=== PATIENT | female | born 1985 | race Asian ===

== ENCOUNTER 2016-10-21 20:22 | Emergency (ER) | payer OTHER ==
[~2016-10-21] VITALS: Ht 160 cm; Wt 77.3 kg
[~2016-10-21 20:22] MED LIST: ATOR10TA84 PO; FLUP10 PO; LOSA25TA21 PO; METF500T4 PO
[2016-10-21 21:01] LABS: GLUCOSE,POINT OF CARE 232 MG/DL (70-110)
[2016-10-21 22:27] LABS: BASOPHILS % (AUTO) 0.4 % (0.0-2.0); EOSINOPHILS % (AUTO) 1.5 % (1.0-6.0); HEMATOCRIT 43.1 % (36-46); HEMOGLOBIN 14.2 g/dL (12.0-16.0); LYMPHOCYTES # (AUTO) 3.5 K/uL (1.0-4.8); LYMPHOCYTES % (AUTO) 17.3 % (22.0-44.0); MEAN CORPUSCULAR HEMOGLOBIN 29.1 pg (26.0-34.0); MEAN CORPUSCULAR VOLUME 88 fL (80-100); MONOCYTES # (AUTO) 0.8 K/uL (0.1-1.0); MONOCYTES % (AUTO) 3.8 % (2.0-9.0); NEUTROPHILS # (AUTO) 15.8 K/uL (1.8-7.7); PLATELET COUNT (AUTO) 463 K/uL (150-450); RED BLOOD CELL COUNT(AUTO) 4.88 MIL/uL (4.00-5.20); RED CELL DISTRIBUTION WIDTH 13.2 % (11.5-14.5); WHITE BLOOD COUNT (AUTO) 20.5 K/uL (4.5-11.0)
[2016-10-21 22:40] LABS: ANION GAP 8 mmol/L (8-16); CARBON DIOXIDE 28 mmol/L (22-29); CHLORIDE 95 mmol/L (98-107); CREATININE 0.82 mg/dL (0.60-1.30); GLOMERULAR FILTR. RATE CALC > 60 mL/min (>60); POTASSIUM 4.1 mmol/L (3.5-5.1); SODIUM SERUM 131 mmol/L (136-145); UREA NITROGEN, BLOOD 12 mg/dL (7-18)
[2016-10-21 22:45] LABS: ALANINE AMINOTRANSFERASE 23 U/L (12-78); ALBUMIN 3.4 g/dL (3.4-5.0); ASPARTATE AMINOTRANSFERASE 16 U/L (15-37); BILIRUBIN,TOTAL 0.1 mg/dL (0.1-1.0); TOTAL PROTEIN, SERUM 8.2 g/dL (6.4-8.2)
[2016-10-21] MEDS ORDERED: FluPHENAZine HCL 10 MG TABLET PO ONE (23:45)
[2016-10-21] MEDS ORDERED: DiphenhydrAMINE HCL 25 MG CAPSULE PO ONE (23:45)
[2016-10-22 00:28] VITALS: BP 141/101
[2016-10-22] MEDS ORDERED: LISINOPRIL 10 MG TABLET PO ONE (00:45)
== END 2016-10-22 00:42 | disposition home or self-care (01) ==
LOC: EMS 20:29
DX: I10 Essential (primary) hypertension (principal); F15.10 Other stimulant abuse, uncomplicated; F20.9 Schizophrenia, unspecified; F31.9 Bipolar disorder, unspecified; E11.9 Type 2 diabetes mellitus without complications
CPT/HCPCS: 36415; 80053; 80307; 82962; 85025; 99284; G0480

== ENCOUNTER 2017-09-02 22:43 | Inpatient (IN) | payer MEDICAID, OTHER ==
[~2017-09-02] VITALS: Ht 157.5 cm; Wt 76.7 kg
[2017-09-02] MEDS ORDERED: RISP.5 PO (22:50)
[2017-09-02 23:34] LABS: BASOPHILS # (AUTO) 0.05 K/uL (0.00-0.20); BASOPHILS % (AUTO) 0.4 % (0.0-2.0); EOSINOPHILS # (AUTO) 0.26 K/uL (0.00-0.70); EOSINOPHILS % (AUTO) 1.88 % (1.0-6.0); HEMATOCRIT 41.4 % (36-46); HEMOGLOBIN 13.9 g/dL (12.0-16.0); LYMPHOCYTES # (AUTO) 2.9 K/uL (1.0-4.8); LYMPHOCYTES % (AUTO) 21.3 % (22.0-44.0); MEAN CORPUSCULAR HEMOGLOBIN 30.7 pg (26.0-34.0); MEAN CORPUSCULAR HGB CONC 33.5 G/dL (31.0-37.0); MEAN CORPUSCULAR VOLUME 92 fL (80-100); MONOCYTES # (AUTO) 0.8 K/uL (0.1-1.0); MONOCYTES % (AUTO) 5.8 % (2.0-9.0); NEUTROPHILS # (AUTO) 9.7 K/uL (1.8-7.7); NEUTROPHILS % (AUTO) 70.6 % (40.0-70.0); PLATELET COUNT (AUTO) 432 K/uL (150-450); RED BLOOD CELL COUNT(AUTO) 4.52 MIL/uL (4.00-5.20); RED CELL DISTRIBUTION WIDTH 13.3 % (11.5-14.5); WHITE BLOOD COUNT (AUTO) 13.8 K/uL (4.5-11.0)
[2017-09-02 23:48] LABS: ANION GAP 14 mmol/L (8-16); CALCIUM, TOTAL 8.7 mg/dL (8.8-10.5); CARBON DIOXIDE 21 mmol/L (22-29); CHLORIDE 101 mmol/L (98-107); CREATININE 0.75 mg/dL (0.60-1.30); GLOMERULAR FILTR. RATE CALC > 60 mL/min (>60); POTASSIUM 3.2 mmol/L (3.5-5.1); SODIUM SERUM 136 mmol/L (136-145); UREA NITROGEN, BLOOD 8 mg/dL (7-18)
[2017-09-02 23:52] LABS: ALANINE AMINOTRANSFERASE 49 U/L (12-78); ALBUMIN 3.4 g/dL (3.4-5.0); ASPARTATE AMINOTRANSFERASE 71 U/L (15-37); BILIRUBIN,TOTAL 0.2 mg/dL (0.1-1.0)
[2017-09-03 00:08] LABS: GLUCOSE,POINT OF CARE 170 MG/DL (70-110)
[2017-09-03] MEDS ORDERED: LORazepam 2 MG TABLET PO PRN (00:30)
[2017-09-03] MEDS ORDERED: ZOLPIDEM TARTRATE 10 MG TABLET PO PRN (00:30)
[2017-09-03] MEDS ORDERED: HALOPERIDOL 5 MG TABLET PO PRN (00:30)
[2017-09-03 03:08] VITALS: BP 142/90
[2017-09-03 05:33] LABS: GLUCOSE,POINT OF CARE 140 MG/DL (70-110)
[2017-09-03] MEDS ORDERED: POTASSIUM CHLORIDE 20 MEQ ER TABLET PO ONE (06:15)
[2017-09-03 08:15] VITALS: BP 127/72
[2017-09-03] MEDS ORDERED: ACETAMINOPHEN 325 MG TABLET PO PRN (11:45)
[2017-09-03] MEDS ORDERED: IBUPROFEN 400 MG TABLET PO PRN (11:45)
[2017-09-03 18:42] VITALS: BP 140/83
[2017-09-04 07:34] LABS: BASOPHILS % (AUTO) 0.9 % (0.0-2.0); EOSINOPHILS % (AUTO) 2.7 % (1.0-6.0); HEMATOCRIT 43.9 % (36-46); HEMOGLOBIN 14.8 g/dL (12.0-16.0); LYMPHOCYTES # (AUTO) 4.4 K/uL (1.0-4.8); LYMPHOCYTES % (AUTO) 26.3 % (22.0-44.0); MEAN CORPUSCULAR HEMOGLOBIN 30.9 pg (26.0-34.0); MEAN CORPUSCULAR HGB CONC 33.8 G/dL (31.0-37.0); MEAN CORPUSCULAR VOLUME 91 fL (80-100); MONOCYTES % (AUTO) 5.7 % (2.0-9.0); NEUTROPHILS # (AUTO) 10.9 K/uL (1.8-7.7); NEUTROPHILS % (AUTO) 64.4 % (40.0-70.0); PLATELET COUNT (AUTO) 327 K/uL (150-450); RED CELL DISTRIBUTION WIDTH 13.5 % (11.5-14.5); WHITE BLOOD COUNT (AUTO) 16.9 K/uL (4.5-11.0)
[2017-09-04 08:02] LABS: CHOL/HDL RATIO 4.9 (3.9-5.7); POTASSIUM 3.7 mmol/L (3.5-5.1); THYROID STIMULATING HORMONE 1.06 uIU/mL (0.36-3.74)
[2017-09-04 08:48] LABS: HEMOGLOBIN A1C 6.7 % (4.5-6.2)
[2017-09-04] MEDS: RisperiDONE 1 MG TABLET PO SCH ×2 (10:08→16:54)
[2017-09-04 10:33] VITALS: BP 156/75
[2017-09-04 17:41] VITALS: BP 128/82
[2017-09-04 18:53] LABS: APPEARANCE,URINE CLOUDY (CLEAR); GLUCOSE, URINE (UA) NEGATIVE (NEGATIVE); KETONES,URINE NEGATIVE (NEGATIVE); LEUKOCYTE ESTERASE ,URINE TRACE (NEGATIVE); OCCULT BLOOD,URINE TRACE (NEGATIVE); PROTEIN,URINE SEE CONFIRM (NEGATIVE)
[2017-09-04 19:03] LABS: ADD UA MICROSCOPIC YES
[2017-09-04 19:05] LABS: SULFOSALICYLIC ACID,URINE 3+ (Negative)
[2017-09-04 19:06] LABS: RBC,URINE None Seen /HPF (0-2); SQUAMOUS EPITHELIAL CELL,UR Many /LPF (None Seen); WBC,URINE 0-2 /HPF (0-5)
[2017-09-05 07:07] LABS: GLUCOSE COMMENT 1 FASTING; GLUCOSE,POINT OF CARE 125 MG/DL (70-110)
[2017-09-05 09:31] VITALS: BP 122/72
[2017-09-05] MEDS: RisperiDONE 1 MG TABLET PO SCH ×2 (10:17→16:26)
[2017-09-05 12:17] LABS: GLUCOSE,POINT OF CARE 134 MG/DL (70-110)
[2017-09-05 16:54] VITALS: BP 122/79
[2017-09-05 21:32] LABS: GLUCOSE,POINT OF CARE 112 MG/DL (70-110)
[2017-09-06 02:40] VITALS: BP 135/68
[2017-09-06 07:13] LABS: GLUCOSE COMMENT 1 Received Meds; GLUCOSE,POINT OF CARE 180 MG/DL (70-110)
[2017-09-06] MEDS: RisperiDONE 1 MG TABLET PO SCH (09:17)
[2017-09-06 09:20] VITALS: BP 113/61
[2017-09-06 11:02] LABS: GLUCOSE,POINT OF CARE 174 MG/DL (70-110)
[2017-09-06] MEDS ORDERED: RISP1 PO (13:15)
== END 2017-09-06 16:00 | disposition home or self-care (01) | DRG 750 ==
LOC: EMS 22:45 → 3EI 09-03 02:48
PROVIDERS: ADMIT Psychiatry & Neurology Psychiatry; ATTEND Psychiatry & Neurology Psychiatry
DX: F25.0 Schizoaffective disorder, bipolar type (principal); E11.9 Type 2 diabetes mellitus without complications; I10 Essential (primary) hypertension; F15.20 Other stimulant dependence, uncomplicated; E03.9 Hypothyroidism, unspecified; D72.829 Elevated white blood cell count, unspecified; E78.5 Hyperlipidemia, unspecified; E87.6 Hypokalemia; J45.909 Unspecified asthma, uncomplicated; F29 Unspecified psychosis not due to a substance or known physiological condition; F17.210 Nicotine dependence, cigarettes, uncomplicated; Z91.5 Personal history of self-harm
CPT/HCPCS: 71020; 82962; 83036; 84132; 84443; 99285; G0480

== ENCOUNTER 2019-01-17 09:49 | Inpatient (IN) | payer MEDICAID, OTHER ==
[~2019-01-17] VITALS: Ht 157.5 cm; Wt 72.7 kg
[~2019-01-17 09:49] MED LIST changes: -ATOR10TA84 PO; -FLUP10 PO; -LOSA25TA21 PO; -METF500T4 PO; +RISP1 PO
[2019-01-17 10:12] LABS: GLUCOSE,POINT OF CARE 175 MG/DL (70-110)
[2019-01-17] MEDS ORDERED: HALOPERIDOL LACTATE 5 MG/ML VIAL IM ONE (10:45)
[2019-01-17 11:12] LABS: BASOPHILS % (AUTO) 0.8 % (0.0-2.0); EOSINOPHILS % (AUTO) 1.8 % (1.0-6.0); HEMATOCRIT 42.8 % (36-46); HEMOGLOBIN 14.4 g/dL (12.0-16.0); LYMPHOCYTES # (AUTO) 2.5 K/uL (1.0-4.8); MEAN CORPUSCULAR HEMOGLOBIN 30.1 pg (26.0-34.0); MEAN CORPUSCULAR HGB CONC 33.5 G/dL (31.0-37.0); MEAN CORPUSCULAR VOLUME 90 fL (80-100); MONOCYTES # (AUTO) 0.5 K/uL (0.1-1.0); MONOCYTES % (AUTO) 5.6 % (2.0-9.0); NEUTROPHILS # (AUTO) 6.1 K/uL (1.8-7.7); NEUTROPHILS % (AUTO) 64.8 % (40.0-70.0); PLATELET COUNT (AUTO) 453 K/uL (150-450); RED BLOOD CELL COUNT(AUTO) 4.76 MIL/uL (4.00-5.20); RED CELL DISTRIBUTION WIDTH 12.9 % (11.5-14.5)
[2019-01-17 11:28] LABS: ANION GAP 11 mmol/L (8-16); CALCIUM, TOTAL 8.8 mg/dL (8.8-10.5); CARBON DIOXIDE 24 mmol/L (22-29); CHLORIDE 102 mmol/L (98-107); GLOMERULAR FILTR. RATE CALC > 60 mL/min (>60); GLUCOSE,RANDOM 163 mg/dL (70-110); POTASSIUM 3.6 mmol/L (3.5-5.1); SODIUM SERUM 137 mmol/L (136-145); UREA NITROGEN, BLOOD 12 mg/dL (7-18)
[2019-01-17] MEDS ORDERED: DiphenhydrAMINE HCL 50 MG/ML VIAL IM ONE (11:30)
[2019-01-17] MEDS ORDERED: LORazepam 2 MG/ML VIAL IM ONE (11:30)
[2019-01-17 11:45] LABS: BARBITURATE SCREEN, URINE NEGATIVE (NEGATIVE); BENZODIAZEPINES SCREEN,URINE NEGATIVE (NEGATIVE); CANNABINOID SCREEN,URINE NEGATIVE (NEGATIVE); COCAINE SCREEN,URINE NEGATIVE (NEGATIVE); METHADONE SCREEN, URINE NEGATIVE (NEGATIVE); OPIATE SCREEN,URINE NEGATIVE (NEGATIVE); PHENCYCLIDINE SCREEN,URINE NEGATIVE (NEGATIVE)
[2019-01-17 11:48] LABS: ALANINE AMINOTRANSFERASE 21 U/L (12-78); ALBUMIN 3.5 g/dL (3.4-5.0); ALKALINE PHOSPHATASE 49 U/L (46-116); ASPARTATE AMINOTRANSFERASE 19 U/L (15-37); BILIRUBIN,TOTAL 0.3 mg/dL (0.1-1.0); HCG,QUANTITATIVE < 1 mIU/mL (0-6); TOTAL PROTEIN, SERUM 7.8 g/dL (6.4-8.2)
[2019-01-17 11:54] LABS: AMPHET/METH SCREEN,URINE POSITIVE (NEGATIVE)
[2019-01-17] MEDS ORDERED: ZOLPIDEM TARTRATE 10 MG TABLET PO PRN (13:15)
[2019-01-17 13:39] LABS: CHOL/HDL RATIO 4.5 (3.9-5.7); CHOLESTEROL 244 mg/dL (131-200); HDL CHOLESTEROL 54 mg/dL (40-60); LDL CHOL (CALC.) 161 mg/dL (0-130); TRIGLYCERIDES 143 mg/dL (15-150)
[2019-01-17 16:29] VITALS: BP 138/87
[2019-01-17] MEDS ORDERED: BENZOCAINE/MENTHOL LOZENGE MM PRN (23:00)
[2019-01-17] MEDS ORDERED: ALBUTEROL SULFATE HFA 90 MCG/PUFF 8 GM INHALER IH PRN (23:00)
[2019-01-17] MEDS ORDERED: CloNIDine HCL 0.1 MG TABLET PO PRN (23:00)
[2019-01-17] MEDS ORDERED: LOPERAMIDE HCL 2 MG CAPSULE PO PRN (23:00)
[2019-01-17] MEDS ORDERED: ONDANSETRON HCL 4 MG TABLET PO PRN (23:00)
[2019-01-17] MEDS ORDERED: MAGNESIUM HYDROXIDE SUSPENSION 30 ML UDCUP PO PRN (23:00)
[2019-01-17] MEDS ORDERED: MAG HYDROX/AL HYDROX/SIMETH ES 30 ML SUSPENSION UDCUP PO PRN (23:00)
[2019-01-17] MEDS ORDERED: PETROLATUM,WHITE 28 GM JELLY TP PRN (23:00)
[2019-01-17] MEDS ORDERED: BACITRACIN 28.4 GM OINTMENT TP PRN (23:00)
[2019-01-18 06:23] VITALS: BP 139/89
[2019-01-18 08:21] VITALS: BP 133/81
[2019-01-18] MEDS: OMEPRAZOLE 20 MG CAPSULE PO SCH (08:49)
[2019-01-18] MEDS: DOCUSATE SODIUM 100 MG CAPSULE PO SCH (08:49)
[2019-01-18] MEDS ORDERED: GLUCAGON,HUMAN RECOMBINANT 1 MG VIAL IM PRN (17:00)
[2019-01-18 17:35] LABS: GLUCOMETER DEV NAME(LOC) BV3S.; GLUCOSE,POINT OF CARE 137 MG/DL (70-110)
[2019-01-19 06:13] VITALS: BP 152/96
[2019-01-19 06:30] LABS: GLUCOMETER DEV NAME(LOC) BV3S.; GLUCOSE,POINT OF CARE 135 MG/DL (70-110)
[2019-01-19 08:15] VITALS: BP 141/68
[2019-01-19] MEDS: DOCUSATE SODIUM 100 MG CAPSULE PO SCH (08:57)
[2019-01-19] MEDS: DIVALPROEX SODIUM 500 MG DR TABLET PO SCH ×2 (08:57→16:28)
[2019-01-19] MEDS: OMEPRAZOLE 20 MG CAPSULE PO SCH (08:57)
[2019-01-19] MEDS: RisperiDONE 3 MG TABLET PO SCH ×2 (08:57→16:28)
[2019-01-19] MEDS: INSULIN LISPRO 100 UNITS/ML SQ PRN (11:48)
[2019-01-19 12:04] LABS: GLUCOMETER DEV NAME(LOC) BV3S.; GLUCOSE,POINT OF CARE 142 MG/DL (70-110)
[2019-01-19 16:15] VITALS: BP 130/74
[2019-01-19 17:10] LABS: GLUCOMETER DEV NAME(LOC) BV3S.; GLUCOSE,POINT OF CARE 125 MG/DL (70-110)
[2019-01-19] MEDS: ACETAMINOPHEN 325 MG TABLET PO PRN (18:46)
[2019-01-19 21:10] LABS: GLUCOMETER DEV NAME(LOC) BV3S.; GLUCOSE,POINT OF CARE 131 MG/DL (70-110)
[2019-01-19] MEDS: IBUPROFEN 600 MG TABLET PO PRN (21:54)
[2019-01-20 06:24] VITALS: BP 142/80
[2019-01-20 06:39] LABS: GLUCOMETER DEV NAME(LOC) BV3N.; GLUCOSE,POINT OF CARE 115 MG/DL (70-110)
[2019-01-20 08:22] VITALS: BP 147/91
[2019-01-20] MEDS: OMEPRAZOLE 20 MG CAPSULE PO SCH (08:54)
[2019-01-20] MEDS: DIVALPROEX SODIUM 500 MG DR TABLET PO SCH ×2 (08:54→16:33)
[2019-01-20] MEDS: DOCUSATE SODIUM 100 MG CAPSULE PO SCH (08:54)
[2019-01-20] MEDS: RisperiDONE 3 MG TABLET PO SCH ×2 (08:54→16:33)
[2019-01-20 12:00] LABS: GLUCOMETER DEV NAME(LOC) BV3S.; GLUCOSE,POINT OF CARE 182 MG/DL (70-110)
[2019-01-20] MEDS: INSULIN LISPRO 100 UNITS/ML SQ PRN ×2 (12:05→16:58)
[2019-01-20 16:44] LABS: GLUCOMETER DEV NAME(LOC) BV3S.; GLUCOSE,POINT OF CARE 158 MG/DL (70-110)
[2019-01-20 17:30] VITALS: BP 150/97
[2019-01-20] MEDS: LORazepam 2 MG TABLET PO PRN (17:54)
[2019-01-21 06:26] VITALS: BP 145/85
[2019-01-21 06:59] LABS: GLUCOMETER DEV NAME(LOC) BV3S.; GLUCOSE,POINT OF CARE 113 MG/DL (70-110)
[2019-01-21 07:38] VITALS: BP 137/99
[2019-01-21] MEDS: ACETAMINOPHEN 325 MG TABLET PO PRN (07:38)
[2019-01-21] MEDS: DIVALPROEX SODIUM 500 MG DR TABLET PO SCH ×2 (08:25→16:28)
[2019-01-21] MEDS: OMEPRAZOLE 20 MG CAPSULE PO SCH (08:25)
[2019-01-21] MEDS: DOCUSATE SODIUM 100 MG CAPSULE PO SCH (08:25)
[2019-01-21] MEDS: RisperiDONE 3 MG TABLET PO SCH ×2 (08:25→16:28)
[2019-01-21] MEDS: NICOTINE 21 MG/24 HOUR PATCH TD SCH (10:02)
[2019-01-21 10:04] VITALS: BP 140/98
[2019-01-21 11:34] LABS: GLUCOMETER DEV NAME(LOC) BV3S.; GLUCOSE,POINT OF CARE 126 MG/DL (70-110)
[2019-01-21] MEDS: IBUPROFEN 600 MG TABLET PO PRN (13:47)
[2019-01-21 13:49] VITALS: BP 141/94
[2019-01-21 16:10] VITALS: BP 137/82
[2019-01-21 17:49] LABS: GLUCOMETER DEV NAME(LOC) BV3S.; GLUCOSE,POINT OF CARE 134 MG/DL (70-110)
[2019-01-21 20:25] LABS: GLUCOMETER DEV NAME(LOC) BV3S.; GLUCOSE,POINT OF CARE 162 MG/DL (70-110)
[2019-01-21] MEDS: INSULIN LISPRO 100 UNITS/ML SQ PRN (20:35)
[2019-01-22 06:30] VITALS: BP 161/114
[2019-01-22 06:59] LABS: GLUCOMETER DEV NAME(LOC) BV3S.; GLUCOSE,POINT OF CARE 131 MG/DL (70-110)
[2019-01-22 07:18] VITALS: BP 149/86
[2019-01-22 08:25] VITALS: BP 124/81
[2019-01-22] MEDS: DOCUSATE SODIUM 100 MG CAPSULE PO SCH (08:32)
[2019-01-22] MEDS: RisperiDONE 3 MG TABLET PO SCH ×2 (08:32→16:18)
[2019-01-22] MEDS: OMEPRAZOLE 20 MG CAPSULE PO SCH (08:32)
[2019-01-22] MEDS: DIVALPROEX SODIUM 500 MG DR TABLET PO SCH ×2 (08:32→16:18)
[2019-01-22] MEDS: NICOTINE 21 MG/24 HOUR PATCH TD SCH (08:32)
[2019-01-22] MEDS: LISINOPRIL 10 MG TABLET PO SCH (08:49)
[2019-01-22 11:55] LABS: GLUCOMETER DEV NAME(LOC) BV3S.; GLUCOSE,POINT OF CARE 123 MG/DL (70-110)
[2019-01-22 16:11] VITALS: BP 133/99
[2019-01-22] MEDS: MetFORMIN HCL 500 MG TABLET PO SCH (16:18)
[2019-01-22 16:55] LABS: GLUCOMETER DEV NAME(LOC) BV3S.; GLUCOSE,POINT OF CARE 202 MG/DL (70-110)
[2019-01-22] MEDS ORDERED: MetFORMIN HCL 500 MG TABLET PO SCH (17:00)
[2019-01-22] MEDS: INSULIN LISPRO 100 UNITS/ML SQ PRN (17:02)
[2019-01-22] MEDS: LORazepam 2 MG TABLET PO PRN (17:50)
[2019-01-22] MEDS: HALOPERIDOL 5 MG TABLET PO PRN (17:50)
[2019-01-22 20:55] LABS: GLUCOMETER DEV NAME(LOC) BV3S.; GLUCOSE,POINT OF CARE 107 MG/DL (70-110)
[2019-01-23 06:30] LABS: GLUCOMETER DEV NAME(LOC) BV3S.; GLUCOSE,POINT OF CARE 105 MG/DL (70-110)
[2019-01-23 06:37] VITALS: BP 142/87
[2019-01-23] MEDS: MetFORMIN HCL 500 MG TABLET PO SCH ×2 (06:39→16:58)
[2019-01-23] MEDS: OMEPRAZOLE 20 MG CAPSULE PO SCH (08:16)
[2019-01-23] MEDS: DOCUSATE SODIUM 100 MG CAPSULE PO SCH (08:16)
[2019-01-23] MEDS: RisperiDONE 3 MG TABLET PO SCH ×2 (08:17→16:58)
[2019-01-23] MEDS: LISINOPRIL 10 MG TABLET PO SCH (08:17)
[2019-01-23] MEDS: DIVALPROEX SODIUM 500 MG DR TABLET PO SCH ×2 (08:17→16:58)
[2019-01-23] MEDS: NICOTINE 21 MG/24 HOUR PATCH TD SCH (08:19)
[2019-01-23 09:09] VITALS: BP 122/95
[2019-01-23 12:00] LABS: GLUCOMETER DEV NAME(LOC) BV3S.; GLUCOSE,POINT OF CARE 105 MG/DL (70-110)
[2019-01-23 16:13] VITALS: BP 136/100
[2019-01-23 16:26] LABS: GLUCOMETER DEV NAME(LOC) BV3S.; GLUCOSE,POINT OF CARE 100 MG/DL (70-110)
[2019-01-23] MEDS: LORazepam 2 MG TABLET PO PRN (16:58)
[2019-01-23] MEDS: HALOPERIDOL 5 MG TABLET PO PRN (16:58)
[2019-01-23 17:56] VITALS: BP 134/96
[2019-01-23 20:54] LABS: GLUCOMETER DEV NAME(LOC) BV3S.; GLUCOSE,POINT OF CARE 117 MG/DL (70-110)
[2019-01-24 00:53] VITALS: BP 142/89
[2019-01-24 05:51] LABS: GLUCOMETER DEV NAME(LOC) BV3S.; GLUCOSE,POINT OF CARE 100 MG/DL (70-110)
[2019-01-24] MEDS: MetFORMIN HCL 500 MG TABLET PO SCH ×2 (06:02→17:26)
[2019-01-24 08:30] VITALS: BP 126/69
[2019-01-24] MEDS: LISINOPRIL 10 MG TABLET PO SCH (08:56)
[2019-01-24] MEDS: DOCUSATE SODIUM 100 MG CAPSULE PO SCH (08:56)
[2019-01-24] MEDS: OMEPRAZOLE 20 MG CAPSULE PO SCH (08:56)
[2019-01-24] MEDS: DIVALPROEX SODIUM 500 MG DR TABLET PO SCH ×2 (08:56→17:26)
[2019-01-24] MEDS: RisperiDONE 3 MG TABLET PO SCH ×2 (08:56→17:26)
[2019-01-24] MEDS: NICOTINE 21 MG/24 HOUR PATCH TD SCH (08:57)
[2019-01-24 12:00] LABS: GLUCOMETER DEV NAME(LOC) BV3S.; GLUCOSE,POINT OF CARE 106 MG/DL (70-110)
[2019-01-24 16:00] VITALS: BP 127/75
[2019-01-24 16:55] LABS: GLUCOMETER DEV NAME(LOC) BV3S.; GLUCOSE,POINT OF CARE 130 MG/DL (70-110)
[2019-01-24] MEDS: LORazepam 2 MG TABLET PO PRN (17:26)
[2019-01-24 20:54] LABS: GLUCOMETER DEV NAME(LOC) BV3S.; GLUCOSE,POINT OF CARE 87 MG/DL (70-110)
[2019-01-25 01:06] VITALS: BP 121/75
[2019-01-25 06:29] LABS: GLUCOMETER DEV NAME(LOC) BV3S.; GLUCOSE,POINT OF CARE 95 MG/DL (70-110)
[2019-01-25] MEDS: MetFORMIN HCL 500 MG TABLET PO SCH ×2 (06:41→17:03)
[2019-01-25 08:37] VITALS: BP 106/70
[2019-01-25 09:02] VITALS: BP 118/75
[2019-01-25] MEDS: OMEPRAZOLE 20 MG CAPSULE PO SCH (09:04)
[2019-01-25] MEDS: DIVALPROEX SODIUM 500 MG DR TABLET PO SCH ×2 (09:04→17:03)
[2019-01-25] MEDS: ASPIRIN 81 MG EC TABLET PO SCH (09:05)
[2019-01-25] MEDS: LISINOPRIL 10 MG TABLET PO SCH (09:05)
[2019-01-25] MEDS: RisperiDONE 3 MG TABLET PO SCH ×2 (09:05→17:03)
[2019-01-25] MEDS: DOCUSATE SODIUM 100 MG CAPSULE PO SCH (09:05)
[2019-01-25] MEDS: NICOTINE 21 MG/24 HOUR PATCH TD SCH (09:09)
[2019-01-25] MEDS: INSULIN LISPRO 100 UNITS/ML SQ PRN ×2 (11:57→20:23)
[2019-01-25 12:00] LABS: GLUCOMETER DEV NAME(LOC) BV3S.; GLUCOSE,POINT OF CARE 151 MG/DL (70-110)
[2019-01-25 16:18] VITALS: BP 134/96
[2019-01-25] MEDS: LORazepam 2 MG TABLET PO PRN (16:29)
[2019-01-25 16:54] LABS: GLUCOMETER DEV NAME(LOC) BV3S.; GLUCOSE,POINT OF CARE 118 MG/DL (70-110)
[2019-01-25 20:19] LABS: GLUCOMETER DEV NAME(LOC) BV3S.; GLUCOSE,POINT OF CARE 163 MG/DL (70-110)
[2019-01-26 01:23] VITALS: BP 122/61
[2019-01-26 06:20] LABS: GLUCOMETER DEV NAME(LOC) BV3S.; GLUCOSE,POINT OF CARE 101 MG/DL (70-110)
[2019-01-26] MEDS: MetFORMIN HCL 500 MG TABLET PO SCH ×2 (06:23→16:03)
[2019-01-26 08:25] VITALS: BP 126/76
[2019-01-26] MEDS: DIVALPROEX SODIUM 500 MG DR TABLET PO SCH ×2 (08:30→16:03)
[2019-01-26] MEDS: LISINOPRIL 10 MG TABLET PO SCH (08:30)
[2019-01-26] MEDS: LORazepam 2 MG TABLET PO PRN (08:30)
[2019-01-26] MEDS: NICOTINE 21 MG/24 HOUR PATCH TD SCH (08:30)
[2019-01-26] MEDS: DOCUSATE SODIUM 100 MG CAPSULE PO SCH (08:31)
[2019-01-26] MEDS: OMEPRAZOLE 20 MG CAPSULE PO SCH (08:31)
[2019-01-26] MEDS: RisperiDONE 3 MG TABLET PO SCH ×2 (08:31→16:03)
[2019-01-26] MEDS: ASPIRIN 81 MG EC TABLET PO SCH (08:33)
[2019-01-26] MEDS ORDERED: LISI-661 PO (11:43)
[2019-01-26] MEDS ORDERED: DIVA250T4 PO (11:43)
[2019-01-26] MEDS ORDERED: METF500T PO (11:43)
[2019-01-26] MEDS ORDERED: ASPI81TA39 PO (11:43)
[2019-01-26] MEDS ORDERED: DOCU100C33 PO (11:43)
[2019-01-26] MEDS ORDERED: RISP3TAB44 PO (11:43)
[2019-01-26] MEDS ORDERED: OMEP20 PO (11:43)
[2019-01-26 12:00] LABS: GLUCOMETER DEV NAME(LOC) BV3S.; GLUCOSE,POINT OF CARE 86 MG/DL (70-110)
== END 2019-01-26 18:41 | disposition home or self-care (01) | DRG 750 ==
LOC: EMS 09:49 → B3A 14:36
PROVIDERS: ADMIT Psychiatry & Neurology Psychiatry; ATTEND Psychiatry & Neurology Psychiatry
DX: F20.0 Paranoid schizophrenia (principal); E11.65 Type 2 diabetes mellitus with hyperglycemia; F15.20 Other stimulant dependence, uncomplicated; J45.909 Unspecified asthma, uncomplicated; E78.00 Pure hypercholesterolemia, unspecified; F17.210 Nicotine dependence, cigarettes, uncomplicated; Z78.1 Physical restraint status
CPT/HCPCS: 83036; 99291; J1200; J1630; J2060

== ENCOUNTER 2020-09-09 22:05 | Inpatient (IN) | payer MEDICAID, OTHER ==
[~2020-09-09] VITALS: Ht 160 cm; Wt 71.0 kg
[~2020-09-09 22:05] MED LIST changes: +ASPI81TA39 PO; +DIVA250T4 PO; +DOCU100C33 PO; +LISI-661 PO; +METF500T PO; +OMEP20 PO; -RISP1 PO; +RISP3TAB44 PO
[2020-09-09] MEDS ORDERED: LORazepam 2 MG TABLET PO PRN (23:45)
[2020-09-09] MEDS ORDERED: HALOPERIDOL 5 MG TABLET PO PRN (23:45)
[2020-09-09] MEDS ORDERED: ZOLPIDEM TARTRATE 10 MG TABLET PO PRN (23:45)
[2020-09-10 00:58] LABS: BASOPHILS % (AUTO) 0.2 % (0.0-2.0); EOSINOPHILS % (AUTO) 0.2 % (1.0-6.0); HEMATOCRIT 41.5 % (36-46); HEMOGLOBIN 13.9 g/dL (12.0-16.0); LYMPHOCYTES # (AUTO) 2.1 K/uL (1.0-4.8); LYMPHOCYTES % (AUTO) 10.6 % (22.0-44.0); MEAN CORPUSCULAR HEMOGLOBIN 30.6 pg (26.0-34.0); MEAN CORPUSCULAR HGB CONC 33.4 G/dL (31.0-37.0); MEAN CORPUSCULAR VOLUME 92 fL (80-100); MONOCYTES # (AUTO) 0.7 K/uL (0.1-1.0); MONOCYTES % (AUTO) 3.4 % (2.0-9.0); NEUTROPHILS # (AUTO) 17.3 K/uL (1.8-7.7); PLATELET COUNT (AUTO) 459 K/uL (150-450); RED BLOOD CELL COUNT(AUTO) 4.53 MIL/uL (4.00-5.20); RED CELL DISTRIBUTION WIDTH 12.6 % (11.5-14.5)
[2020-09-10 01:05] LABS: NEUTROPHILS % (AUTO) 85.6 % (40.0-70.0)
[2020-09-10 01:15] LABS: ANION GAP 14 mmol/L (8-16); CALCIUM, TOTAL 9.7 mg/dL (8.8-10.5); CARBON DIOXIDE 21 mmol/L (22-29); CHLORIDE 96 mmol/L (98-107); CREATININE 1.27 mg/dL (0.60-1.30); GLOMERULAR FILTR. RATE CALC 48 mL/min (>60); GLUCOSE,RANDOM 330 mg/dL (70-110); POTASSIUM 3.5 mmol/L (3.5-5.1); SODIUM SERUM 131 mmol/L (136-145); UREA NITROGEN, BLOOD 24 mg/dL (7-18)
[2020-09-10 01:27] LABS: ALANINE AMINOTRANSFERASE 23 U/L (12-78); ALBUMIN 3.3 g/dL (3.4-5.0); ALKALINE PHOSPHATASE 46 U/L (46-116); ASPARTATE AMINOTRANSFERASE 22 U/L (15-37); BILIRUBIN,TOTAL 0.5 mg/dL (0.1-1.0); HCG,QUANTITATIVE 1 mIU/mL (0-6); TOTAL PROTEIN, SERUM 7.9 g/dL (6.4-8.2)
[2020-09-10 02:44] LABS: COVID AG,FIA SOURCE NASOPHARYNGEAL
[2020-09-10 04:32] LABS: APPEARANCE,URINE CLOUDY (CLEAR); BILIRUBIN,URINE NEGATIVE (NEGATIVE); GLUCOSE, URINE (UA) >=1000 mg/dL (NEGATIVE); KETONES,URINE NEGATIVE (NEGATIVE); LEUKOCYTE ESTERASE ,URINE NEGATIVE (NEGATIVE); NITRATE,URINE NEGATIVE (NEGATIVE); OCCULT BLOOD,URINE NEGATIVE (NEGATIVE); PH,URINE 5.5 (5.0-8.0); PROTEIN,URINE SEE CONFIRM (NEGATIVE); UROBILINOGEN,URINE 0.2 mg/dL (<=1.0)
[2020-09-10 04:35] LABS: SULFOSALICYLIC ACID,URINE 2+ (Negative)
[2020-09-10 04:37] LABS: AMPHET/METH SCREEN,URINE POSITIVE (NEGATIVE); BARBITURATE SCREEN, URINE NEGATIVE (NEGATIVE); BENZODIAZEPINES SCREEN,URINE NEGATIVE (NEGATIVE); CANNABINOID SCREEN,URINE NEGATIVE (NEGATIVE); COCAINE SCREEN,URINE NEGATIVE (NEGATIVE); METHADONE SCREEN, URINE NEGATIVE (NEGATIVE); OPIATE SCREEN,URINE NEGATIVE (NEGATIVE)
[2020-09-10 04:38] LABS: CHOL/HDL RATIO 6.7 (3.9-5.7); CHOLESTEROL 308 mg/dL (131-200); HDL CHOLESTEROL 46 mg/dL (40-60); TRIGLYCERIDES 547 mg/dL (15-150)
[2020-09-10 04:40] LABS: AMORPHOUS SEDIMENT,UR Few /LPF (None Seen); BACTERIA,URINE Few /HPF (None Seen); RBC,URINE 0-2 /HPF (0-2); SQUAMOUS EPITHELIAL CELL,UR Moderate /LPF (None Seen)
[2020-09-10 04:41] LABS: PHENCYCLIDINE SCREEN,URINE NEGATIVE (NEGATIVE)
[2020-09-10] MEDS ORDERED: PETROLATUM,WHITE 28 GM JELLY TP PRN (08:00)
[2020-09-10] MEDS ORDERED: LOPERAMIDE HCL 2 MG CAPSULE PO PRN (08:00)
[2020-09-10] MEDS ORDERED: IBUPROFEN 400 MG TABLET PO PRN (08:00)
[2020-09-10] MEDS ORDERED: ONDANSETRON HCL 4 MG TABLET PO PRN (08:00)
[2020-09-10] MEDS ORDERED: MAG HYDROX/AL HYDROX/SIMETH ES 30 ML SUSPENSION UDCUP PO PRN (08:00)
[2020-09-10] MEDS ORDERED: ALBUTEROL SULFATE HFA 90 MCG/PUFF 8 GM INHALER IH PRN (08:00)
[2020-09-10] MEDS ORDERED: CloNIDine HCL 0.1 MG TABLET PO PRN (08:00)
[2020-09-10] MEDS ORDERED: ACETAMINOPHEN 325 MG TABLET PO PRN (08:00)
[2020-09-10] MEDS ORDERED: NICOTINE 14 MG/24 HOUR PATCH TD PRN (08:00)
[2020-09-10] MEDS ORDERED: GuaiFENesin/D-METHORPHAN [SUGAR-FREE] 200-20MG/10 ML SYRUP UDCUP PO PRN (08:00)
[2020-09-10] MEDS ORDERED: DOCUSATE SODIUM 100 MG CAPSULE PO PRN (08:00)
[2020-09-10] MEDS ORDERED: MAGNESIUM HYDROXIDE SUSPENSION 30 ML UDCUP PO PRN (08:00)
[2020-09-10] MEDS ORDERED: DEXTROSE 50%-WATER 25 GM/50 ML SYRINGE IVP PRN (10:00)
[2020-09-10] MEDS: OMEPRAZOLE 20 MG CAPSULE PO SCH (10:23)
[2020-09-10] MEDS: LISINOPRIL 10 MG TABLET PO SCH (10:23)
[2020-09-10] MEDS: DOCUSATE SODIUM 100 MG CAPSULE PO SCH (10:24)
[2020-09-10] MEDS: ASPIRIN 81 MG CHEWABLE TABLET PO SCH (10:24)
[2020-09-10] MEDS: INSULIN LISPRO 100 UNITS/ML SQ PRN ×3 (11:40→21:16)
[2020-09-10 12:02] LABS: GLUCOMETER DEV NAME(LOC) 3E.C; GLUCOSE,POINT OF CARE 368 MG/DL (70-110)
[2020-09-10 12:02] LABS: GLUCOMETER DEV NAME(LOC) 3E.C; GLUCOSE,POINT OF CARE 363 MG/DL (70-110)
[2020-09-10 13:11] VITALS: BP 136/82
[2020-09-10] MEDS ORDERED: INFLUENZA VIRUS VACCINE QVS 2020-21 (6MO+)/PF 60 MCG/0.5 ML SYRINGE IM ONE (15:45)
[2020-09-10 16:22] VITALS: BP 104/60
[2020-09-10] MEDS: MetFORMIN HCL 500 MG TABLET PO SCH (16:54)
[2020-09-10 17:03] LABS: GLUCOMETER DEV NAME(LOC) 3E.C; GLUCOSE,POINT OF CARE 158 MG/DL (70-110)
[2020-09-10] MEDS ORDERED: CIPROFLOXACIN HCL 500 MG TABLET PO SCH (18:30)
[2020-09-10 21:37] LABS: GLUCOMETER DEV NAME(LOC) 3E.C; GLUCOSE,POINT OF CARE 269 MG/DL (70-110)
[2020-09-11 06:36] LABS: GLUCOMETER DEV NAME(LOC) 3E.C; GLUCOSE,POINT OF CARE 264 MG/DL (70-110)
[2020-09-11] MEDS: MetFORMIN HCL 500 MG TABLET PO SCH ×2 (06:42→16:27)
[2020-09-11] MEDS: INSULIN LISPRO 100 UNITS/ML SQ PRN ×4 (06:46→21:29)
[2020-09-11 07:24] LABS: BASOPHILS % (AUTO) 0.5 % (0.0-2.0); EOSINOPHILS % (AUTO) 1.7 % (1.0-6.0); HEMOGLOBIN 13.5 g/dL (12.0-16.0); LYMPHOCYTES # (AUTO) 1.9 K/uL (1.0-4.8); LYMPHOCYTES % (AUTO) 15.6 % (22.0-44.0); MEAN CORPUSCULAR HEMOGLOBIN 31.4 pg (26.0-34.0); MEAN CORPUSCULAR HGB CONC 33.6 G/dL (31.0-37.0); MEAN CORPUSCULAR VOLUME 94 fL (80-100); MONOCYTES # (AUTO) 0.6 K/uL (0.1-1.0); NEUTROPHILS # (AUTO) 9.5 K/uL (1.8-7.7); NEUTROPHILS % (AUTO) 77.2 % (40.0-70.0); PLATELET COUNT (AUTO) 444 K/uL (150-450); RED BLOOD CELL COUNT(AUTO) 4.28 MIL/uL (4.00-5.20); RED CELL DISTRIBUTION WIDTH 12.6 % (11.5-14.5)
[2020-09-11 08:00] VITALS: BP 142/87
[2020-09-11] MEDS: OMEPRAZOLE 20 MG CAPSULE PO SCH (08:14)
[2020-09-11] MEDS: ASPIRIN 81 MG CHEWABLE TABLET PO SCH (08:14)
[2020-09-11] MEDS: DOCUSATE SODIUM 100 MG CAPSULE PO SCH (08:14)
[2020-09-11] MEDS: LISINOPRIL 10 MG TABLET PO SCH (08:14)
[2020-09-11] MEDS: OMEGA-3/DHA/EPA/FISH OIL 1,000 MG CAPSULE PO SCH (08:15)
[2020-09-11 11:58] LABS: GLUCOMETER DEV NAME(LOC) 3E.C; GLUCOSE,POINT OF CARE 238 MG/DL (70-110)
[2020-09-11 16:07] VITALS: BP 124/88
[2020-09-11] MEDS: RisperiDONE 3 MG TABLET PO SCH (16:27)
[2020-09-11] MEDS: DIVALPROEX SODIUM 500 MG DR TABLET PO SCH (16:27)
[2020-09-11 21:33] LABS: GLUCOMETER DEV NAME(LOC) 3E.C; GLUCOSE,POINT OF CARE 143 MG/DL (70-110)
[2020-09-12 06:28] LABS: GLUCOMETER DEV NAME(LOC) 3E.C; GLUCOSE,POINT OF CARE 230 MG/DL (70-110)
[2020-09-12] MEDS: MetFORMIN HCL 500 MG TABLET PO SCH ×2 (06:43→16:31)
[2020-09-12] MEDS: INSULIN LISPRO 100 UNITS/ML SQ PRN ×4 (06:43→21:05)
[2020-09-12 08:00] VITALS: BP 110/53
[2020-09-12] MEDS: DIVALPROEX SODIUM 500 MG DR TABLET PO SCH ×2 (08:12→16:31)
[2020-09-12] MEDS: LISINOPRIL 10 MG TABLET PO SCH (08:12)
[2020-09-12] MEDS: MULTIVITAMINS WITH MINERALS, THERAPEUTIC TABLET PO SCH (08:12)
[2020-09-12] MEDS: OMEGA-3/DHA/EPA/FISH OIL 1,000 MG CAPSULE PO SCH (08:12)
[2020-09-12] MEDS: DOCUSATE SODIUM 100 MG CAPSULE PO SCH (08:12)
[2020-09-12] MEDS: OMEPRAZOLE 20 MG CAPSULE PO SCH (08:12)
[2020-09-12] MEDS: ASPIRIN 81 MG CHEWABLE TABLET PO SCH (08:12)
[2020-09-12] MEDS: RisperiDONE 3 MG TABLET PO SCH ×2 (08:12→16:31)
[2020-09-12 11:35] LABS: GLUCOMETER DEV NAME(LOC) 3E.C; GLUCOSE,POINT OF CARE 193 MG/DL (70-110)
[2020-09-12 16:00] VITALS: BP 123/81
[2020-09-12 17:17] LABS: GLUCOMETER DEV NAME(LOC) 3E.C; GLUCOSE,POINT OF CARE 282 MG/DL (70-110)
[2020-09-12 21:32] LABS: GLUCOMETER DEV NAME(LOC) 3E.C; GLUCOSE,POINT OF CARE 131 MG/DL (70-110)
[2020-09-13] MEDS: MetFORMIN HCL 500 MG TABLET PO SCH ×2 (07:05→16:33)
[2020-09-13] MEDS: INSULIN LISPRO 100 UNITS/ML SQ PRN ×3 (07:07→17:22)
[2020-09-13 07:30] LABS: GLUCOMETER DEV NAME(LOC) 3E.C; GLUCOSE,POINT OF CARE 175 MG/DL (70-110)
[2020-09-13] MEDS: OMEGA-3/DHA/EPA/FISH OIL 1,000 MG CAPSULE PO SCH (09:02)
[2020-09-13] MEDS: LISINOPRIL 10 MG TABLET PO SCH (09:02)
[2020-09-13] MEDS: MULTIVITAMINS WITH MINERALS, THERAPEUTIC TABLET PO SCH (09:02)
[2020-09-13] MEDS: ASPIRIN 81 MG CHEWABLE TABLET PO SCH (09:02)
[2020-09-13] MEDS: DOCUSATE SODIUM 100 MG CAPSULE PO SCH (09:02)
[2020-09-13] MEDS: RisperiDONE 3 MG TABLET PO SCH ×2 (09:02→16:34)
[2020-09-13] MEDS: DIVALPROEX SODIUM 500 MG DR TABLET PO SCH ×2 (09:02→16:34)
[2020-09-13] MEDS: OMEPRAZOLE 20 MG CAPSULE PO SCH (09:02)
[2020-09-13 09:42] VITALS: BP 113/75
[2020-09-13 11:54] LABS: GLUCOMETER DEV NAME(LOC) 3E.C; GLUCOSE,POINT OF CARE 202 MG/DL (70-110)
[2020-09-13 16:08] VITALS: BP 104/73
[2020-09-13 17:13] LABS: GLUCOMETER DEV NAME(LOC) 3E.C; GLUCOSE,POINT OF CARE 193 MG/DL (70-110)
[2020-09-13 21:23] LABS: GLUCOMETER DEV NAME(LOC) 3E.C; GLUCOSE,POINT OF CARE 118 MG/DL (70-110)
[2020-09-13] MEDS ORDERED: RISP3TAB44 PO (21:51)
[2020-09-13] MEDS ORDERED: DIVA-112 PO (21:54)
[2020-09-14 06:01] LABS: GLUCOMETER DEV NAME(LOC) 3E.C; GLUCOSE,POINT OF CARE 175 MG/DL (70-110)
[2020-09-14] MEDS: MetFORMIN HCL 500 MG TABLET PO SCH (06:46)
[2020-09-14] MEDS: INSULIN LISPRO 100 UNITS/ML SQ PRN ×2 (06:46→12:18)
[2020-09-14 08:51] VITALS: BP 121/75
[2020-09-14] MEDS: LISINOPRIL 10 MG TABLET PO SCH (08:55)
[2020-09-14] MEDS: OMEPRAZOLE 20 MG CAPSULE PO SCH (08:55)
[2020-09-14] MEDS: MULTIVITAMINS WITH MINERALS, THERAPEUTIC TABLET PO SCH (08:55)
[2020-09-14] MEDS: RisperiDONE 3 MG TABLET PO SCH (08:55)
[2020-09-14] MEDS: OMEGA-3/DHA/EPA/FISH OIL 1,000 MG CAPSULE PO SCH (08:55)
[2020-09-14] MEDS: DOCUSATE SODIUM 100 MG CAPSULE PO SCH (08:56)
[2020-09-14] MEDS: ASPIRIN 81 MG CHEWABLE TABLET PO SCH (08:56)
[2020-09-14] MEDS: DIVALPROEX SODIUM 500 MG DR TABLET PO SCH (08:56)
[2020-09-14] MEDS ORDERED: MULT-248 PO (11:28)
[2020-09-14] MEDS ORDERED: OMEG-135 PO (11:29)
[2020-09-14 12:12] LABS: GLUCOMETER DEV NAME(LOC) 3E.C; GLUCOSE,POINT OF CARE 172 MG/DL (70-110)
== END 2020-09-14 13:40 | disposition home or self-care (01) | DRG 750 ==
LOC: EMS 22:07 → 3EC 23:45
PROVIDERS: ADMIT Psychiatry & Neurology Psychiatry; ATTEND Psychiatry & Neurology Psychiatry
DX: F20.0 Paranoid schizophrenia (principal); E11.9 Type 2 diabetes mellitus without complications; J45.909 Unspecified asthma, uncomplicated; D72.828 Other elevated white blood cell count; F15.10 Other stimulant abuse, uncomplicated; R81 Glycosuria; K21.9 Gastro-esophageal reflux disease without esophagitis; E87.1 Hypo-osmolality and hyponatremia; I10 Essential (primary) hypertension; E78.00 Pure hypercholesterolemia, unspecified; N39.0 Urinary tract infection, site not specified; N17.9 Acute kidney failure, unspecified; Z20.828 Contact with and (suspected) exposure to other viral communicable diseases
CPT/HCPCS: 87426; G0480; 36415-L1; 36415-TC; 71045-TC; 80061-TC

== ENCOUNTER 2024-10-11 17:38 | Emergency (ER) | payer MEDICAID, OTHER ==
[~2024-10-11] VITALS: Ht 157.5 cm; Wt 74.5 kg
[~2024-10-11 17:38] MED LIST changes: +DIVA-112 PO; -DIVA250T4 PO; -LISI-661 PO; +LISI-893 PO; +MULT-248 PO; +OMEG-135 PO
[2024-10-11 18:02] VITALS: BP 183/110; PULSE 116; RESP 20; TEMP 98; O2SAT 98
[2024-10-12] MEDS ORDERED: LISI-893 PO (01:41)
[2024-10-12] MEDS ORDERED: METF-1211 PO (01:41)
== END 2024-10-11 20:14 | disposition left against medical advice (07) ==
LOC: EMS 17:38
DX: R51.9 Headache, unspecified (principal); R42 Dizziness and giddiness; R07.89 Other chest pain; Z53.21 Procedure and treatment not carried out due to patient leaving prior to being seen by health care provider
CPT/HCPCS: 71045; 93005

== ENCOUNTER 2024-10-11 20:59 | Emergency (ER) | payer OTHER ==
[~2024-10-11] VITALS: Ht 165.1 cm; Wt 74.5 kg
[2024-10-11 21:36] VITALS: TEMP 98.1
[2024-10-11 22:06] LABS: BASOPHILS % (AUTO) 0.5 % (0.0-2.0); EOSINOPHILS % (AUTO) 0.7 % (1.0-6.0); HEMATOCRIT 46.8 % (36-46); HEMOGLOBIN 15.5 g/dL (12.0-16.0); LYMPHOCYTES % (AUTO) 18.3 % (22.0-44.0); MEAN CORPUSCULAR HEMOGLOBIN 29.9 pg (26.0-34.0); MEAN CORPUSCULAR HGB CONC 33.1 G/dL (31.0-37.0); MEAN CORPUSCULAR VOLUME 91 fL (80-100); MONOCYTES # (AUTO) 0.6 K/uL (0.1-1.0); MONOCYTES % (AUTO) 3.8 % (2.0-9.0); NEUTROPHILS # (AUTO) 12.7 K/uL (1.8-7.7); NEUTROPHILS % (AUTO) 76.7 % (40.0-70.0); PLATELET COUNT (AUTO) 587 K/uL (150-450); RED BLOOD CELL COUNT(AUTO) 5.17 MIL/uL (4.00-5.20); RED CELL DISTRIBUTION WIDTH 13.5 % (11.5-14.5); WHITE BLOOD COUNT (AUTO) 16.6 K/uL (4.5-11.0)
[2024-10-11 22:15] LABS: ANION GAP 10 mmol/L (8-16); CALCIUM, TOTAL 9.5 mg/dL (8.8-10.5); CARBON DIOXIDE 26 mmol/L (22-29); CHLORIDE 95 mmol/L (98-107); CREATININE 0.82 mg/dL (0.60-1.30); GLOMERULAR FILTR. RATE CALC > 60 mL/min (>60); GLUCOSE,RANDOM 167 mg/dL (70-110); POTASSIUM 3.5 mmol/L (3.5-5.1); SODIUM SERUM 131 mmol/L (136-145); UREA NITROGEN, BLOOD 13 mg/dL (7-18)
[2024-10-11 22:27] LABS: B-TYPE NATRIURETIC PEPTIDE 6 pg/mL (0-100)
[2024-10-11 22:28] LABS: TROPONIN I-HIGH SENSITIVITY 66 ng/L (<51)
[2024-10-12] MEDS: ACETAMINOPHEN 500 MG TABLET PO ONE (00:11)
[2024-10-12] MEDS: ASPIRIN 81 MG CHEWABLE TABLET PO ONE (00:11)
[2024-10-12] MEDS: LISINOPRIL 10 MG TABLET PO ONE (00:11)
[2024-10-12 00:26] LABS: COVID AG,FIA SOURCE NASAL SWAB
[2024-10-12 01:10] LABS: PH,URINE DRUG SCREEN 6.5 (5.0-8.0)
[2024-10-12 01:15] LABS: ALCOHOL, URINE DRUG SCREEN NEGATIVE (NEGATIVE); AMPHET/METH SCREEN,URINE POSITIVE (NEGATIVE); BARBITURATE SCREEN, URINE NEGATIVE (NEGATIVE); BENZODIAZEPINES SCREEN,URINE NEGATIVE (NEGATIVE); CANNABINOID SCREEN,URINE NEGATIVE (NEGATIVE); COCAINE SCREEN,URINE NEGATIVE (NEGATIVE); METHADONE SCREEN, URINE NEGATIVE (NEGATIVE); OPIATE SCREEN,URINE NEGATIVE (NEGATIVE); PHENCYCLIDINE SCREEN,URINE POSITIVE (NEGATIVE)
[2024-10-12 01:19] LABS: INFLUENZA TYPE A NEGATIVE FOR TYPE A (NEGATIVE); INFLUENZA TYPE B NEGATIVE FOR TYPE B (NEGATIVE); SARS-COV2 (COVID) ANTIGEN,FIA Negative (Negative)
[2024-10-12 01:23] LABS: TROPONIN I-HIGH SENSITIVITY 70 ng/L (<51)
[2024-10-12] MEDS ORDERED: METF-1211 PO (01:41)
[2024-10-12] MEDS ORDERED: LISI-893 PO (01:41)
[2024-10-12 01:44] VITALS: BP 151/83; PULSE 104; RESP 18; O2SAT 98
== END 2024-10-12 01:50 | disposition home or self-care (01) ==
LOC: EMS 21:09
DX: R51.9 Headache, unspecified (principal); I10 Essential (primary) hypertension; F15.10 Other stimulant abuse, uncomplicated; R79.89 Other specified abnormal findings of blood chemistry; J45.909 Unspecified asthma, uncomplicated; F31.9 Bipolar disorder, unspecified; F17.210 Nicotine dependence, cigarettes, uncomplicated; E11.65 Type 2 diabetes mellitus with hyperglycemia; F20.9 Schizophrenia, unspecified; Z79.82 Long term (current) use of aspirin; Z79.899 Other long term (current) drug therapy; Z20.822 Contact with and (suspected) exposure to COVID-19
CPT/HCPCS: 99284; 87426; 80048; 83880; 84484; 84703; 85025; 87804; 36415; 93005; 80307; G0480